=== PATIENT | female | born 1990 | race Caucasian/White ===

== ENCOUNTER 2018-05-22 08:00 | Outpatient (CLI) | payer MEDICAID | END 2018-05-22 23:59 | disposition home or self-care (01) | LOC: LAB.R 08:00 | PROVIDERS: ATTEND Obstetrics & Gynecology | DX: E28.2 Polycystic ovarian syndrome (principal) | CPT/HCPCS: 81001; 81003; 87086; 87491; 87591 ==

== ENCOUNTER 2018-05-23 08:00 | Outpatient (CLI) | payer MEDICAID ==
[2018-05-23 20:16] LABS: THYROID STIMULATING HORMONE 1.15 uIU/mL (0.34-5.60)
[2018-05-23 20:44] LABS: FOLLICLE STIMULATING HORMONE 5.49 mIU/mL
[2018-05-23 20:45] LABS: LUTEINIZING HORMONE 12.17 mIU/mL
[2018-05-23 20:47] LABS: HB2 TOTAL 14.2 g/dL; HEMOGLOBIN A1C 0.5 g/dL; HEMOGLOBIN A1C % 5.4 % (4.6-6.2)
== END 2018-05-23 23:59 | disposition home or self-care (01) ==
LOC: LAB.N 08:00
PROVIDERS: ATTEND Obstetrics & Gynecology
DX: E28.2 Polycystic ovarian syndrome (principal)
CPT/HCPCS: 36415; 81599; 82627; 83001; 83002; 83036; 84443

== ENCOUNTER 2018-05-28 08:00 | Outpatient (CLI) | payer MEDICAID ==
[2018-05-28 19:25] LABS: BILIRUBIN,URINE NEGATIVE (NEGATIVE); GLUCOSE, URINE (UA) NEGATIVE (NEGATIVE); KETONES,URINE (UA) NEGATIVE (NEGATIVE); LEUKOCYTE ESTERASE, URINE NEGATIVE (NEGATIVE); NITRITE,URINE NEGATIVE (NEGATIVE); OCCULT BLOOD,URINE TRACE-LYSE (NEGATIVE); PROTEIN,URINE NEGATIVE (NEGATIVE); UROBILINOGEN,URINE 0.2 (NORMAL) E.U./dL (NORMAL)
[2018-05-28 19:29] LABS: CLARITY,URINE CLEAR (CLEAR)
== END 2018-05-28 23:59 | disposition home or self-care (01) ==
LOC: LAB.N 08:00
PROVIDERS: ATTEND Obstetrics & Gynecology
DX: E28.2 Polycystic ovarian syndrome (principal)
CPT/HCPCS: 81001; 81003; 87086

== ENCOUNTER 2018-07-02 10:13 | Outpatient (CLI) | payer MEDICAID | END 2018-07-02 10:14 | disposition home or self-care (01) | LOC: NS 10:13 | PROVIDERS: ATTEND Obstetrics & Gynecology | DX: E28.2 Polycystic ovarian syndrome (principal); E66.3 Overweight; Z71.3 Dietary counseling and surveillance | CPT/HCPCS: 97802 ==

== ENCOUNTER 2018-07-15 09:58 | Outpatient (CLI) | payer MEDICAID | END 2018-07-15 09:59 | disposition home or self-care (01) | LOC: NS 09:58 | PROVIDERS: ATTEND Obstetrics & Gynecology | DX: E28.2 Polycystic ovarian syndrome (principal); E66.3 Overweight; Z71.3 Dietary counseling and surveillance | CPT/HCPCS: 97803 ==

== ENCOUNTER 2018-08-20 15:22 | Outpatient (CLI) | payer MEDICAID | END 2018-08-20 15:23 | disposition home or self-care (01) | LOC: NS 15:22 | PROVIDERS: ATTEND Obstetrics & Gynecology | DX: E28.2 Polycystic ovarian syndrome (principal); E66.3 Overweight; Z71.3 Dietary counseling and surveillance | CPT/HCPCS: 97803 ==

== ENCOUNTER 2020-02-22 07:59 | Outpatient (CLI) | payer MEDICAID ==
[2020-02-22 13:11] LABS: THYROID STIMULATING HORMONE 0.83 uIU/mL (0.34-5.60)
[2020-02-22 13:15] LABS: FREE T4 (FREE THYROXINE) 0.8 ng/dL (0.58-1.64)
== END 2020-02-22 08:00 | disposition home or self-care (01) ==
LOC: LAB.WCP 07:59
PROVIDERS: ATTEND Obstetrics & Gynecology
DX: E66.9 Obesity, unspecified (principal); E28.2 Polycystic ovarian syndrome; D23.9 Other benign neoplasm of skin, unspecified; D12.6 Benign neoplasm of colon, unspecified; E78.5 Hyperlipidemia, unspecified; E03.9 Hypothyroidism, unspecified
CPT/HCPCS: 36415; 84144; 84439; 84443

== ENCOUNTER 2020-10-02 16:06 | Emergency (ER) | payer MEDICAID ==
[2020-10-02 17:00] LABS: BASOPHILS % (AUTO) 0.4 %; EOSINOPHILS # (AUTO) 0.1 10^3/uL (0.0-0.7); EOSINOPHILS % (AUTO) 0.6 %; HGB - HEMOGLOBIN 13.3 g/dL (12.0-16.0); LYMPHOCYTES # (AUTO) 1.8 10^3/uL (1.5-3.5); LYMPHOCYTES % (AUTO) 16.2 %; MEAN CORPUSCULAR HEMOGLOBIN 29.7 pg (27.0-31.0); MEAN CORPUSCULAR HGB CONC 34.1 g/dL (32.0-36.0); MEAN CORPUSCULAR VOLUME 87.1 fL (81.0-99.0); MEAN PLATELET VOLUME 9.6 fL (7.9-10.8); MONOCYTES # (AUTO) 0.7 10^3/uL (0.0-1.0); MONOCYTES % (AUTO) 5.9 %; NEUTROPHILS # (AUTO) 8.6 10^3/uL (1.5-6.6); NEUTROPHILS % (AUTO) 76.5 %; PLT - PLATELET COUNT 231 10^3/uL (130-450); RED BLOOD COUNT 4.48 10^6/uL (4.20-5.40); RED CELL DISTRIBUTION WIDTH 12.8 % (12.0-15.0); WHITE BLOOD COUNT 11.3 x10^3/uL (4.8-10.8)
[2020-10-02 17:13] LABS: ALBUMIN 4.3 g/dL (3.2-5.5); ALBUMIN/GLOBULIN RATIO 1.5 (1.0-2.2); BILIRUBIN,TOTAL 0.5 mg/dL (0.2-1.0); CALCIUM 9.1 mg/dL (8.5-10.3); CREATININE 0.7 mg/dL (0.4-1.0); POTASSIUM 3.8 mmol/L (3.5-5.0); TOTAL PROTEIN 7.2 g/dL (6.7-8.2)
[2020-10-02 17:46] LABS: BILIRUBIN,URINE NEGATIVE (NEGATIVE); GLUCOSE, URINE (UA) NEGATIVE (NEGATIVE); KETONES,URINE (UA) NEGATIVE (NEGATIVE); LEUKOCYTE ESTERASE, URINE NEGATIVE (NEGATIVE); NITRITE,URINE NEGATIVE (NEGATIVE); OCCULT BLOOD,URINE NEGATIVE (NEGATIVE); PROTEIN,URINE NEGATIVE (NEGATIVE); UROBILINOGEN,URINE 0.2 (NORMAL) E.U./dL (NORMAL)
[2020-10-02 17:50] LABS: CLARITY,URINE CLEAR (CLEAR); HCG UR QUAL NEGATIVE
--- NOTE | 2020-10-02 18:01 | ED Physician Documentation ---
PD HPI ABD PAIN - Stated complaint Stated Complaint: ABD PAIN - Chief complaint Chief Complaint: Abd Pain - History obtained from History obtained from: Patient - Additional information Additional information: 30-year-old woman with PCOS, no history of abdominal surgeries. Developed lower abdominal pain radiating up over the course of today which is worse with movement. When pain was bad she was nauseous. Had normal BM this morning. No urinary complaints. No fevers. Review of Systems Ten Systems: 10 systems reviewed and negative Constitutional: reports: Reviewed and negative Throat: reports: Reviewed and negative Cardiac: reports: Reviewed and negative PD PAST MEDICAL HISTORY - Allergies Allergies/Adverse Reactions: Allergies Allergy/AdvReac Type Severity Reaction Status Date / Time No Known Drug Allergies Allergy Verified 10/02/20 16:31 - Social History Does the pt smoke?: No Smoking Status: Never smoker PD ED PE NORMAL - Vitals Vital signs reviewed: Yes - General General: Alert and oriented X 3, No acute distress - HEENT HEENT: PERRL, EOMI - Neck Neck: Supple, no meningeal sign, No bony TTP - Cardiac Cardiac: RRR, No murmur - Respiratory Respiratory: No respiratory distress, Clear bilaterally - Abdomen Abdomen: Normal bowel sounds, Soft, Other (Tender to the low abdomen, does not seem to lateralize, but also has some modest right sided abdominal tenderness.) - Back Back: No CVA TTP, No spinal TTP - Derm Derm: Normal color, Warm and dry - Extremities Extremities: No edema, No calf tenderness / cord - Neuro Neuro: Alert and oriented X 3, Normal speech Results - Vitals Vitals: Vital Signs - 24 hr 10/02/20 10/02/20 16:24 18:30 Temperature 36.7 C Heart Rate 74 66 Respiratory 16 17 Rate Blood Pressure 110/68 111/62 O2 Saturation 99 99 Oxygen O2 Source Room air - Labs Labs: Laboratory Tests 10/02/20 10/02/20 10/02/20 16:54 16:54 17:33 WBC 11.3 H RBC 4.48 Hgb 13.3 Hct 39.0 MCV 87.1 MCH 29.7 MCHC 34.1 RDW 12.8 Plt Count 231 MPV 9.6 Neut # (Auto) 8.6 H Lymph # (Auto) 1.8 [place] # (Auto) 0.7 Eos # (Auto) 0.1 Baso # (Auto) 0.0 Absolute Nucleated RBC 0.00 Nucleated RBC % 0.0 Sodium 135 Potassium 3.8 Chloride 103 Carbon Dioxide 25 Anion Gap 7.0 BUN 14 Creatinine 0.7 Estimated GFR (MDRD) 98 Glucose 97 Calcium 9.1 Total Bilirubin 0.5 AST 23 ALT 32 Alkaline Phosphatase 54 Total Protein 7.2 Albumin 4.3 Globulin 2.9 Albumin/Globulin Ratio 1.5 Lipase 21 L Urine Color LT. YELLOW Urine Clarity CLEAR Urine pH 7.0 Ur Specific [place] 1.010 Urine Protein NEGATIVE Urine Glucose (UA) NEGATIVE Urine Ketones NEGATIVE Urine Occult Blood NEGATIVE Urine Nitrite NEGATIVE Urine Bilirubin NEGATIVE Urine Urobilinogen 0.2 (NORMAL) Ur Leukocyte Esterase NEGATIVE Ur Microscopic Review NOT INDICATED Urine Culture Comments NOT INDICATED Urine HCG, Qual NEGATIVE PD MEDICAL DECISION MAKING - ED course ED course: 30-year-old woman with pelvic pain. Differential diagnosis includes appendicitis, ectopic , mittelschmerz, diverticulitis, ovarian cyst. White count was modestly elevated. test negative. CT with IV contrast interpreted contemporaneously by me shows only incidental findings which were discussed with the patient. She declined pain medication. Was read checked prior to discharge nontender. Close return precautions were given. Departure - Departure Disposition: 01 Home, Self Care Clinical Impression: Abdominal pain Qualifiers: Abdominal location: lower abdomen, unspecified Qualified Code(s): R10.30 - Lower abdominal pain, unspecified Condition: Good Record reviewed to determine appropriate education?: Yes Instructions: ED Pelvic Pain [facility] Comments: Return if you worsen or are not better in the next 24 hours. Follow-up with your primary care physician. Tylenol or ibuprofen as needed for pain. Forms: Activity restrictions
[2020-10-02] MEDS ORDERED: IOVERSOL 320 100 ML VIAL IVP ONE ×2 (18:09→18:30)
--- NOTE | 2020-10-02 19:07 | CT Report ---
PROCEDURE: Abdomen/Pelvis W INDICATIONS: IV only, low abd pain CONTRAST: IV CONTRAST: Optiray 320 ml: 100 PO CONTRAST: *NO PO CONTRAST TECHNIQUE: After the administration of IV contrast, 5 mm thick sections acquired from the diaphragms to the symp hysis. 5 mm thick coronal and sagittal reformats were acquired. For radiation dose reduction, the f ollowing was used: automated exposure control, adjustment of mA and/or kV according to patient size. COMPARISON: None. FINDINGS: ABDOMEN: Lung bases: Normal Heart:Normal. Liver: Hepatic steatosis. Hepatic focus statistically representing cyst although technically indeterm inate due to small size. Gallbladder: Normal Bile ducts: Normal. Pancreas: Normal. Spleen: Normal. Adrenals: Normal. Kidneys and ureters: Normal. Stomach and duodenum: Normal. Bowel: Normal. Normal appearance of the appendix. Colonic diverticulosis incidentally noted without e vidence of acute inflammation. Other: No free fluid or air. Abdominal nodes: Normal. Aorta: Normal in size. IVC: Normal. Ventral wall: Normal. PELVIS: Bladder: Normal. Pelvic nodes: Normal. Inguinal: No hernia. Bones: No vertebral body compression fracture. No suspicious bone lesion. IMPRESSION: No acute abnormality. Normal appendix Hepatic steatosis. Incidentally noted colonic diverticulosis. Hepatic cyst Reviewed by: Timothy Abrams MD on 10/02/2020 7:06 PM PDT Approved by: Timothy Abrams MD on 10/02/2020 7:06 PM PDT Station ID: [id number]
[2020-10-02 19:36] VITALS: BP 120/60
== END 2020-10-02 19:35 | disposition home or self-care (01) ==
LOC: ED 16:06
DX: R10.30 Lower abdominal pain, unspecified (principal)
CPT/HCPCS: 36415; 74177; 80053; 81003; 81025; 83690; 85025; 99283; 99284; Q9967; 81001; 87086

== ENCOUNTER 2021-02-01 17:29 | Emergency (ER) | payer OTHER, MEDICAID ==
[2021-02-01 17:42] VITALS: BP 131/74
[2021-02-01] MEDS ORDERED: TETANUS/DIPHTHERIA/PERTUSSIS 0.5 ML SYRINGE IM ONE (17:48)
--- NOTE | 2021-02-01 17:51 | ED Physician Documentation ---
History of Present Illness - Stated complaint Stated Complaint: LEFT LEG INJURY - Chief complaint Chief Complaint: Ext Problem - Additonal information Additional information: 30-year-old female presents emergency department for evaluation of a puncture wound to the left lateral lower leg sustained when cleaning out a crawlspace at work. She was on her knees and was pulling some cardboard which ripped. She fell to the left impaling her leg on a dirty linda nail. Also reports that the attic was filled with rat feces. Patient is unsure of her last tetanus shot. Injury occurred about 5 hours prior to arrival. This is a work-related injury Review of Systems Constitutional: reports: Reviewed and negative Ears: reports: Reviewed and negative Nose: reports: Reviewed and negative Cardiac: reports: Reviewed and negative Respiratory: reports: Reviewed and negative Skin: reports: Other (Puncture wound) Musculoskeletal: reports: Reviewed and negative PD PAST MEDICAL HISTORY - Allergies Allergies/Adverse Reactions: Allergies Allergy/AdvReac Type Severity Reaction Status Date / Time No Known Drug Allergies Allergy Verified 02/01/21 17:42 - Social History Does the pt smoke?: No Smoking Status: Never smoker PD ED PE EXPANDED - General General: Alert, No acute distress - Extremities Extremities: Left leg (Puncture wound left lower lateral leg. Mild surrounding ecchymosis. No erythema. Normal gait) Results - Vitals Vitals: Vital Signs - 24 hr 02/01/21 17:34 Temperature 36.6 C Heart Rate 96 Respiratory 15 Rate Blood Pressure 131/74 H O2 Saturation 99 Oxygen O2 Source Room air PD MEDICAL DECISION MAKING - ED course Complexity details: considered differential, d/w patient ED course: 30-year-old female presents emergency department to obtain a tetanus vaccine as she impaled her left lower leg on a linda nail while cleaning out a crawlspace at work. Unknown last tetanus. Tetanus was updated today. Will defer prophylactic antibiotics but we did discuss return precautions for concerns of infection. [employer] [id number] completed in full Departure - Departure Disposition: 01 Home, Self Care Clinical Impression: Puncture wound Condition: Stable Record reviewed to determine appropriate education?: Yes Instructions: ED Wound Puncture General Comments: You were seen today in the emergency department for a puncture wound on your left lower leg sustained when working in a crawl space at work today. Your tetanus was updated today and is good for the next 7 to 10 years. Most puncture wounds will heal well however if you develop any concerns of infection such as fevers, red streaking, redness milky drainage or have increased pain then please return immediately to the ER for a second evaluation.
== END 2021-02-01 18:05 | disposition home or self-care (01) ==
LOC: ED 17:29
DX: S81.832A Puncture wound without foreign body, left lower leg, initial encounter (principal); W18.30XA Fall on same level, unspecified, initial encounter; Y93.H9 Activity, other involving exterior property and land maintenance, building and construction; Y99.0 Civilian activity done for income or pay; Z23 Encounter for immunization
CPT/HCPCS: 90471; 99281; 99283

== ENCOUNTER 2023-10-25 06:54 | Outpatient (CLI) | payer OTHER ==
--- NOTE | 2023-10-25 12:12 | Ultrasound Report ---
PROCEDURE: Abdomen Limited INDICATIONS: ABN AST AND ALT TECHNIQUE: Real-time focused scanning was performed of the abdomen, with image documentation. COMPARISONS: None. FINDINGS: Liver measures 21 cm with significant echogenic appearance. Main portal vein appears patent. Gallbladder is not seen. CBD is not seen, likely obscured by echogenic liver. Visualized pancreas is unremarkable. Right kidney measures 12 cm. IMPRESSION: Significant echogenic liver, nonspecific but most commonly due to steatosis. Hepatomegaly. The biliary system is not well assessed, likely obscured by the echogenic liver Reviewed by: Ganesh Mosqueda MD on 10/25/2023 12:11 PM PDT Approved by: Ganesh Mosqueda MD on 10/25/2023 12:11 PM PDT Station ID: [id number]
== END 2023-10-25 06:55 | disposition home or self-care (01) ==
LOC: DI 06:54 → MERGE 07:30
PROVIDERS: ATTEND Nurse Practitioner Family
DX: R74.8 Abnormal levels of other serum enzymes (principal); R16.0 Hepatomegaly, not elsewhere classified

== ENCOUNTER 2023-12-28 03:05 | Emergency (ER) | payer OTHER ==
[2023-12-28 03:29] VITALS: O2SAT 98
--- NOTE | 2023-12-28 03:30 | ED Physician Documentation ---
History of Present Illness - Stated complaint Stated Complaint: N/V - Chief complaint Chief Complaint: Abd Pain - History obtained from History obtained from: Patient - Additonal information Additional information: 33-year-old female with history of fatty liver disease, morbid obesity (pending Gastric bypass surgery) presents by private vehicle from home for severe acid reflux. Patient states that she always has reflux but it is so severe that even when sitting upright she feels there is acid in her throat. Associated nausea. Patient states that she took multiple Nexium tablets at home without relief. Patient states that she was dry heaving at home and her told her to come to the emergency department for evaluation. Patient denies abdominal pain. She states that she has been working with sleep lab technologist at [facility] to come up with a diet plan for her acid reflux. Review of Systems Constitutional: denies: Fever, Chills GI: reports: Nausea, Other (reflux). 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 - Present Medications Home Medications: Ambulatory Orders Medication Instructions Recorded Confirmed Cholecalciferol [Vitamin D3] 2 cap PO DAILY 12/28/23 12/28/23 Naproxen 500 mg PO BID 12/28/23 12/28/23 - Allergies Allergies/Adverse Reactions: Allergies Allergy/AdvReac Type Severity Reaction Status Date / Time No Known Drug Allergies Allergy Verified 12/28/23 03:15 - Social History Does the pt smoke?: No Smoking Status: Never smoker Does the pt drink ETOH?: No Does the pt have substance abuse?: No - Immunizations Immunizations are current?: Yes - POLST Patient has POLST: No PD ED PE NORMAL - Vitals Vital signs reviewed: Yes - General General: Alert and oriented X 3, No acute distress, Well developed/nourished - Cardiac Cardiac: RRR, Strong equal pulses - Respiratory Respiratory: No respiratory distress, Clear bilaterally - Abdomen Abdomen: Soft, Non tender, Non distended - Back Back: No CVA TTP, No spinal TTP - Derm Derm: Normal color, Warm and dry, No rash - Extremities Extremities: No deformity, No tenderness to palpate, Normal ROM s pain, No edema - Neuro Neuro: Alert and oriented X 3, installer helper 2-12 intact, No motor deficit, Normal speech Results - Vitals Vitals: Vital Signs - 24 hr 12/28/23 12/28/23 03:09 04:59 Temperature 36.5 C Heart Rate 87 79 Respiratory 16 16 Rate Blood Pressure 126/87 H 120/69 O2 Saturation 98 98 Oxygen O2 Source Room air - Labs Labs: Laboratory Tests 12/28/23 12/28/23 12/28/23 03:38 03:38 04:10 WBC 7.2 RBC 4.98 Hgb 14.6 Hct 42.7 MCV 85.7 MCH 29.3 MCHC 34.2 RDW 13.0 Plt Count 229 MPV 10.2 Neut # (Auto) 4.1 Lymph # (Auto) 2.3 [place] # (Auto) 0.6 Eos # (Auto) 0.2 Baso # (Auto) 0.0 Absolute Nucleated RBC 0.00 Nucleated RBC % 0.0 Sodium 136 Potassium 3.6 Chloride 102 Carbon Dioxide 26 Anion Gap 8.0 BUN 12 Creatinine 0.7 Estimated GFR (MDRD) 96 Glucose 126 H Calcium 9.5 Total Bilirubin 0.4 AST 39 ALT 72 H Alkaline Phosphatase 73 Total Protein 7.1 Albumin 4.5 Globulin 2.6 Albumin/Globulin Ratio 1.7 Lipase 39 Urine HCG, Qual NEGATIVE PD Medical Decision Making - ED course Complexity details: reviewed results, re-evaluated patient, considered differential, d/w patient ED course: Well-appearing patient with worsening of chronic acid reflux. Abdomen soft, nontender, vital signs within normal limits. Reglan ordered for nausea and promotility properties. Maalox and viscous lidocaine ordered for reflux. Basic labs ordered. Laboratory work reviewed, unremarkable. Patient reports improvement in her symptoms with medications and states that she now feels like she will be able to fall asleep without being woken up by the acid. Patient counseled to continue to follow-up with her GI team at [facility] for her continued symptoms prior to receiving gastric bypass surgery. Departure - Departure Disposition: 01 Home, Self Care Clinical Impression: Acid reflux Condition: Stable Instructions: GERD Dc Comments: Your laboratory work today was reassuring. Make sure to eat small meals at a time and avoid acidic foods. You may take Nexium up to 2 times daily. You may also take [id number] antacids such as Tums or other calcium chews for comfort. Continue to follow-up with your GI team prior to gastric bypass surgery Forms: PCP List Discharge Date/Time: 12/28/23 05:00
[2023-12-28] MEDS: METOCLOPRAMIDE 10 MG/2 ML VIAL IVP STA (03:46)
[2023-12-28] MEDS: SODIUM CHLORIDE 0.9% 1,000 ML IV STA (03:46)
[2023-12-28] MEDS: MAG HYDROX/AL HYDROX/SIMETH 30 ML UDC PO STA (03:51)
[2023-12-28] MEDS: LIDOCAINE VISCOUS 2% 15 ML UDC MM STA (03:51)
[2023-12-28 03:53] LABS: BASOPHILS % (AUTO) 0.6 %; EOSINOPHILS # (AUTO) 0.2 10^3/uL (0.0-0.7); EOSINOPHILS % (AUTO) 3.2 %; HCT - HEMATOCRIT 42.7 % (37.0-47.0); HGB - HEMOGLOBIN 14.6 g/dL (12.0-16.0); LYMPHOCYTES # (AUTO) 2.3 10^3/uL (1.5-3.5); LYMPHOCYTES % (AUTO) 31.5 %; MEAN CORPUSCULAR HEMOGLOBIN 29.3 pg (27.0-31.0); MEAN CORPUSCULAR HGB CONC 34.2 g/dL (32.0-36.0); MEAN CORPUSCULAR VOLUME 85.7 fL (81.0-99.0); MEAN PLATELET VOLUME 10.2 fL (7.9-10.8); MONOCYTES # (AUTO) 0.6 10^3/uL (0.0-1.0); MONOCYTES % (AUTO) 7.6 %; NEUTROPHILS # (AUTO) 4.1 10^3/uL (1.5-6.6); PLT - PLATELET COUNT 229 10^3/uL (130-450); RED BLOOD COUNT 4.98 10^6/uL (4.20-5.40); WHITE BLOOD COUNT 7.2 x10^3/uL (4.8-10.8)
[2023-12-28 04:14] LABS: ALBUMIN 4.5 g/dL (3.2-5.5); ALBUMIN/GLOBULIN RATIO 1.7 (1.0-2.2); BILIRUBIN,TOTAL 0.4 mg/dL (0.2-1.0); CALCIUM 9.5 mg/dL (8.5-10.3); CREATININE 0.7 mg/dL (0.6-1.3); POTASSIUM 3.6 mmol/L (3.5-4.5); TOTAL PROTEIN 7.1 g/dL (6.4-8.9)
[2023-12-28 04:24] LABS: HCG UR QUAL NEGATIVE
[2023-12-28 05:01] VITALS: BP 120/69
== END 2023-12-28 05:00 | disposition home or self-care (01) ==
LOC: ED 03:05
DX: K21.9 Gastro-esophageal reflux disease without esophagitis (principal); E66.01 Morbid (severe) obesity due to excess calories; Z68.42 Body mass index [BMI] 45.0-49.9, adult
CPT/HCPCS: 36415; 80053; 81025; 83690; 85025; 96374; 99283; 99284; A9270; J2765